=== PATIENT | female | born 1995 | race Two or more races ===

== ENCOUNTER → 2022-10-19 11:09 | Outpatient (BNVA) | payer OTHER, SELFPAY | PROVIDERS: PCP Family Medicine; Visit Provider Nurse Practitioner Family | DX: G43.909 Migraine, unspecified, not intractable, without status migrainosus (principal); M54.2 Cervicalgia | CPT/HCPCS: 99202 ==

== ENCOUNTER → 2023-01-02 15:05 | Outpatient (BNVA) | payer OTHER, SELFPAY | PROVIDERS: PCP Family Medicine; Visit Provider Nurse Practitioner Family | DX: M54.2 Cervicalgia (principal); G43.909 Migraine, unspecified, not intractable, without status migrainosus; G47.00 Insomnia, unspecified; Z79.899 Other long term (current) drug therapy | CPT/HCPCS: 99212 ==

== ENCOUNTER → 2023-04-04 15:34 | Outpatient (BNVA) | payer OTHER, SELFPAY | PROVIDERS: PCP Family Medicine; Visit Provider Nurse Practitioner Family | DX: G43.909 Migraine, unspecified, not intractable, without status migrainosus (principal); M54.2 Cervicalgia | CPT/HCPCS: 99212 ==

== ENCOUNTER → 2023-04-18 13:06 | Outpatient (BNVA) | payer OTHER, SELFPAY | PROVIDERS: PCP Family Medicine; Visit Provider Nurse Practitioner Family | DX: G43.909 Migraine, unspecified, not intractable, without status migrainosus (principal) | CPT/HCPCS: 99211 ==

== ENCOUNTER 2023-07-19 13:05 | Outpatient (AMB) | payer OTHER, SELFPAY ==
--- NOTE | 2023-07-19 13:09 | MHC.OFFVIS ---
Intake Vital Signs 07/19/23 13:15 Height 4 ft 11 in Weight 114 lb 6 oz BMI 23.1 BMI Reason not done Patient refused/unable BP 98/62 Blood Pressure Location Rt brachial Position Sitting Respiration 16 Pulse 96 Pulse Source Pulse Oximeter Pulse Oximetry (%) 98 Oxygen Delivery Method Room Air Intake Visit Reasons: 3 mo follow up - Migraines-Confirmed Intake Note: Pt presents to office for a 3 month follow up of migraines. Pt states her migraines have been stable while on her meds. She does note that she noticed the effects of her medication wore off a couple of days prior to her next dose. Overall, she feels they are well managed. Allergies adhesive tape Allergy (Unknown, Verified 07/19/23 13:14) Blister Medication List - Last Reconciled 07/19/23 by CELINE Carreno albuterol sulfate 90 mcg/actuation (Ventolin HFA) 2 puffs inhalation Q4-6H PRN utyfrwt-zttmyrsskvlmr-iepkyvnv 250-250-65 mg (Excedrin Migraine) 1 tab PO Q4-6H PRN baclofen 5 - 10 mg (1 - 2 x 5 mg) PO BEDTIME 30 days ergocalciferol (vitamin D2) units PO .weekly fluticasone propionate 110 mcg/actuation (Flovent HFA) 2 puffs inhalation BID galcanezumab-gnlm (Emgality Pen) 120 mg subcut ONCE 30 days rizatriptan 5 - 10 mg (0.5 - 1 x 10 mg) PO Q2H PRN 21 days HPI HPI Comments History of Present Illness Details 28-yr-old female presents for f/u visit. Pt denies any significant interval medical changes. Pt reports that she has been doing well on Emgality, may feel a slight uptick in headaches in the few days before the next injection cycles. In the last month, she has had 5-6 headache days- more mild-mod. Her neck can still be tight. Using the baclofen as needed. She did not tolerate the Rizatriptan- it can make her headache a bit worse, but not as bad as the sumatriptan- but is reluctant to retry. PFSH Surgical History History of sleeve gastrectomy [place] teeth extracted Family History Father Hypotension Mother Hypertension Social History Alcohol intake: current Alcohol intake frequency: holidays/special occasions only Patient Tobacco Use Status: Current someday Tobacco user Substance Use Type: Marijuana Review of Systems Const All systems reviewed & are unremarkable except as noted in HPI and below Physical Exam Vital Signs: Last Vital Signs Pulse 96 07/19/23 13:15 Resp 16 07/19/23 13:15 BP 98/62 07/19/23 13:15 Pulse Ox 98 07/19/23 13:15 Oxygen Delivery Method Room Air 07/19/23 13:15 BMI result Body Mass Index 23.1 Const General: cooperative and no acute distress Orientation/consciousness: patient oriented x3 HEENT Head: Yes normocephalic Resp Effort & Inspection: normal respiratory effort and able to speak in complete sentences Neuro General: patient oriented x3, gait normal and CN's II-XI intact bilaterally Cognition (Neuro): normal cognition Motor exam (neuro): 5/5 motor strength present throughout Psych Appearance: grossly normal Mental Status: mental status grossly normal Speech and movement: Normal speech and movement present Affect: normal affect Attitude: cooperative Thought process: Normal thought process present Thought content: Normal thought content present Insight: Good insight present (Psych) Judgement: Good judgement present (Psych) Assessment & Plan Assessment & Plan (1) Migraine: Comment: ? if right toe tingling is migraine sensory aura Code(s): G43.909 - Migraine, unspecified, not intractable, without status migrainosus (2) Cervicalgia: Code(s): M54.2 - Cervicalgia Plan For acute headache treatment: Trial Ubrogepant (Ubrelvy) 100mg tab, 1/2 - 1 tab (50-100mg) at onset of headache, may repeat in 2 hours. Max of 2 tabs (200mg) per 24 hours. May adjunct with OTC Tylenol 650mg q 4 hours, Ibuprofen 600mg q 6 hours, or Naproxen 440mg q 12 hrs prn. Stop Rizatriptan 10mg tab. Reviewed potential adverse effects of triptans, including but not limited to nausea, fatigue, chest tightness/tingling (usually passes within a few minutes), medication overuse headaches. Previous acute migraine medication trials: Sumatriptan 50mg prn- ineffective. Sumatriptan 100mg- not tolerated. Rizatripatn- not tolerated. Acute migraine medication contraindications: None at this time. ? For headache prevention medication: Continue Baclofen 5-10mg qhs. Continue Emgality 240mg sc x's 1, 120mg q month Previous migraine prevention medication trials: Amitriptyline- used for mood- did not help headaches. Topiramate- not tolerated. B2 and Mag- ineffective. Migraine prevention medication contraindications: BBs d/t dx of asthma. Continue exercise. ? F/u in 4-5 months or sooner prn new/worsening s/s. Medications: New ubrogepant (Ubrelvy) take at onset of migraine, may repeat in 2hrs (may take w/ Ibuprofen) 50 - 100 mg (0.5 - 1 x 100 mg) PO ONCE 30 days PRN 16 tabs 3RF migraine headache Refilled galcanezumab-gnlm (Emgality Pen) 120 mg subcut ONCE 30 days 1 mL 6RF Discontinued rizatriptan max 2 tabs per day or 4 tabs per week Discontinued Reason: Doctor's Order 5 - 10 mg (0.5 - 1 x 10 mg) PO Q2H 21 days PRN 12 tabs 3RF migraine headache Coding Level of Care Code Est Pt Level 4 (30678) Diagnoses Migraine G43.909 Cervicalgia M54.2
[2023-07-19 13:15] VITALS: BP 98/62; PULSE 96; RESP 16; O2SAT 98; BMI 23.1
== END 2023-07-19 13:51 | disposition home or self-care (01) ==
PROVIDERS: PCP Family Medicine; Visit Provider Nurse Practitioner Family
DX: G43.909 Migraine, unspecified, not intractable, without status migrainosus (principal); M54.2 Cervicalgia
CPT/HCPCS: 99214

== ENCOUNTER → 2023-07-19 13:05 | Outpatient (BNVA) | payer OTHER, SELFPAY | PROVIDERS: PCP Family Medicine; Visit Provider Nurse Practitioner Family | DX: G43.909 Migraine, unspecified, not intractable, without status migrainosus (principal); M54.2 Cervicalgia | CPT/HCPCS: 99212 ==

== ENCOUNTER → 2023-11-07 14:10 | Outpatient (BNVA) | payer OTHER, SELFPAY | PROVIDERS: PCP Family Medicine; Visit Provider Nurse Practitioner Family ==

== ENCOUNTER 2023-11-29 11:51 | Outpatient (REF) | payer OTHER, SELFPAY ==
--- NOTE | ~2023-11-29 | MR_ITS ---
EXAMINATION: MR BRAIN WITH AND WITHOUT CONTRAST CLINICAL INFORMATION: Migraines, right sided tenderness to touch, evaluate for trigeminal neuralgia COMPARISON: None available TECHNIQUE: MRI of the brain was obtained using routine sequences before and following administration of intravenous contrast. A total of 5 mL of Gadavist was administered intravenously. FINDINGS: There is no reduced diffusion to suggest acute infarct. No mass effect, extra-axial collection, midline shift, or other herniation. No abnormal intracranial enhancement. A small vessel courses superior to the right trigeminal nerve cisternal segment without sara compression. No abnormal enhancement is seen along the cisternal segment of the trigeminal nerves or within Meckel's caves. The visualized extracranial course of the trigeminal nerves appears within normal limits. The ventricles and sulci are normal in size and configuration. Intracranial flow voids are preserved. The paranasal sinuses are essentially clear. Minimal mastoid opacification. No focal expansile/destructive osseous lesion. MR/MR head/brain wo/w con IMPRESSION: A small vessel courses superior to the right trigeminal nerve cisternal segment without sara compression. The visualized aspects of the bilateral trigeminal nerves appear within normal limits.
[2023-11-29] MEDS: gadobutroL 7.5 ML VIAL IVPUSH (12:46)
== END 2023-11-29 11:52 | disposition home or self-care (01) ==
LOC: HO.MRI 11:51
PROVIDERS: PCP Family Medicine; Visit Provider Nurse Practitioner Family
DX: G50.0 Trigeminal neuralgia (principal); G40.109 Localization-related (focal) (partial) symptomatic epilepsy and epileptic syndromes with simple partial seizures, not intractable, without status epilepticus; H02.409 Unspecified ptosis of unspecified eyelid
CPT/HCPCS: 70553; A9585

== ENCOUNTER 2024-03-03 15:25 | Outpatient (AMB) | payer OTHER, SELFPAY ==
--- NOTE | 2024-03-03 15:26 | MHC.OFFVIS ---
Intake Visit Reasons: 3 mo f/u-CONF Intake Note: Patient presents for 3 months f/u. Allergies adhesive tape Allergy (Unknown, Verified 03/03/24 15:27) Blister Medication List - Last Reconciled 03/03/24 by CELINE Carreno albuterol sulfate 90 mcg/actuation (Ventolin HFA) 2 puffs inhalation Q4-6H PRN bulefqo-dcazoxzdvvvgq-ssypmjuy 250-250-65 mg (Excedrin Migraine) 1 tab PO Q4-6H PRN baclofen 5 - 10 mg (1 - 2 x 5 mg) PO BEDTIME 30 days budesonide 180 mcg/actuation (Pulmicort Flexhaler) 1 inh inhalation BID carbamazepine ER (Tegretol XR) 100 mg PO BID 90 days ergocalciferol (vitamin D2) units PO .weekly galcanezumab-gnlm (Emgality Pen) 120 mg subcut ONCE 30 days sucralfate (Carafate) 10 mL PO QIDACHS ubrogepant (Ubrelvy) 50 - 100 mg (0.5 - 1 x 100 mg) PO ONCE PRN 30 days HPI Comments Details: 29-yr-old female presents for f/u televideo visit via [employer] Pt reports she had a recent ER eval for transient intussusception- since PCP has started her on carafate. Her asthma tx was also adjusted. Brain MRI showed a small vessel courses superior to the right trigeminal nerve cisternal segment without sara compression. Upon review of the [facility] MRI w/ pt= she endorsed ongoing right anterior ear pain burning/melting pain in TN V1 distribution- triggered by next movement. Thus, pt was advised to start Tegretol ER 100mg bid to help, which pt feels has been helpful. She only has had 1 episode of the right sided burning/melting pain- triggered by turning her head- lasted 10-15 seconds- since starting Tegretol. She notes that when she unintentionally skipped a few days, she had mood irritability. But when she resumes it, her mood improves. She did recently have a slight uptick in the right sided migraine- she states this may be related to a delay in receiving her migraine. Typically has 4-6 more mild migraine days per month. Ubrelvy is still helpful- but has not been able to refill. Baseline headache characteristics: Migraine: Mild-Severe, Starts as stabbing and throbbing in the right posterior neck and spreads into right occipital, parietal, temporal region, and then moves across the whole head as a dull ache. The headache almost always starts and is more intense on the right, occasionally may have a headache that moves into left holiness. A/w brief photophobia, nausea, vomiting, grogginess, activity tolerance, numbness/tingling in right toes (she thinks maybe its her positioning). Cervicgenic headcahe: Rght neck pain which cause a burning/melting sensation into- right occipital, parietal, temporal region- lasts about 30-60 seconds- this is triggered by cervical movement (not specific movement). Trigeminal neuralgia headache: a stabbing throbbing pain in right holiness a/w right eye tearing, but unaware of redness/weakness- now triggered by truning her head. 11/29/23, MR/MR head/brain wo/w con IMPRESSION: A small vessel courses superior to the right trigeminal nerve cisternal segment without sara compression. The visualized aspects of the bilateral trigeminal nerves appear within normal limits. [facility] Medical History (Updated 03/03/24 @ 16:41 by CELINE Carreno) Intussusception intestine Surgical History History of sleeve gastrectomy [place] teeth extracted Family History Father Hypotension Mother Hypertension Social History Alcohol intake: current Alcohol intake frequency: holidays/special occasions only Patient Tobacco Use Status: Current someday Tobacco user Substance Use Type: Marijuana Physical Exam Const General: cooperative and no acute distress Orientation/consciousness: patient oriented x3 Resp Effort & Inspection: normal respiratory effort and able to speak in complete sentences Neuro General: patient oriented x3 Cognition (Neuro): normal cognition Psych Appearance: grossly normal Mental Status: mental status grossly normal Speech and movement: Normal speech and movement present Affect: normal affect Attitude: cooperative Telehealth Telehealth Telehealth Platform: [facility] Location of provider rendering services: practice address Location of patient: address on file Patient Identification confirmed using: Name, : Yes Telehealth method: video Patient verbally consented to treatment: Yes Patient verbally consented to billing insurance company: Yes Patient informed of any privacy concerns related to visit: Yes Minutes spent on Phone/Video with Pt.: 22 Assessment & Plan Assessment & Plan (1) Trigeminal neuralgia of right side of face: Code(s): G50.0 - Trigeminal neuralgia Category: Medical (2) Migraine: Comment: ? if right toe tingling is migraine sensory aura Code(s): G43.909 - Migraine, unspecified, not intractable, without status migrainosus Category: Medical (3) Cervicalgia: Code(s): M54.2 - Cervicalgia Category: Medical (4) Cervicogenic headache: Code(s): G44.86 - Cervicogenic headache Category: Medical Plan For new right-sided headache triggered by cervical rotation c/w trigeminal neuralgia: Reviewed brain MRI w/wo: a small vessel courses superior to the right trigeminal nerve cisternal segment without sara compression. Continue Tegretol Er 100mg bid Recheck CBC and CMP. Pt advsied to undergo: brain MRA wo- to assess for secondary vascular etiologies not appreciated on MRI brain. c-spine MRI w/wo- to assess for cervical central inflammatory, radicular process Future considerations: Trial of Tegretol. PT referral. Brain MRA. For acute headache treatment: Continue Ubrogepant (Ubrelvy) 100mg tab, 1/2 - 1 tab (50-100mg) at onset of headache, may repeat in 2 hours. Max of 2 tabs (200mg) per 24 hours. May adjunct with OTC Tylenol 650mg q 4 hours, Ibuprofen 600mg q 6 hours, or Naproxen 440mg q 12 hrs prn. Previous acute migraine medication trials: Sumatriptan 50mg prn- ineffective. Sumatriptan 100mg- not tolerated. Rizatripatn- not tolerated. Acute migraine medication contraindications: None at this time. ? For headache prevention medication: Continue Baclofen 5-10mg qhs. Continue Emgality 120mg q month Previous migraine prevention medication trials: Amitriptyline- used for mood- did not help headaches. Topiramate- not tolerated. B2 and Mag- ineffective. Migraine prevention medication contraindications: BBs d/t dx of asthma. Continue exercise. ? F/u in 3-4 months or sooner prn new/worsening s/s. Orders: Orders Complete Blood Count Auto Diff Today G50.0 - Trigeminal neuralgia Comprehensive Met. Panel Today G50.0 - Trigeminal neuralgia MR cervical spine wo/w con Today G40.109 - Localization-related (focal) (partial) symptomatic epilepsy and epileptic syndromes with simple partial seizures, not intractable, without status epilepticus, G50.0 - Trigeminal neuralgia, H02.409 - Unspecified ptosis of unspecified eyelid MR angio head wo con Today G40.109 - Localization-related (focal) (partial) symptomatic epilepsy and epileptic syndromes with simple partial seizures, not intractable, without status epilepticus, G50.0 - Trigeminal neuralgia, H02.409 - Unspecified ptosis of unspecified eyelid Medications: Refilled galcanezumab-gnlm (Emgality Pen) 120 mg subcut ONCE 30 days 1 mL 6RF carbamazepine ER (Tegretol XR) 100 mg PO BID 90 days 180 tabs 3RF G50.0 - Trigeminal neuralgia Coding Level of Care Code Tele Est Pt Level 4 (98245) Diagnoses Trigeminal neuralgia of right side of face G50.0 Migraine G43.909 Cervicalgia M54.2 Cervicogenic headache G44.86
== END 2024-03-03 16:00 ==
LOC: HO.HSMS 15:25
PROVIDERS: PCP Family Medicine; Visit Provider Nurse Practitioner Family
DX: G50.0 Trigeminal neuralgia (principal); G43.909 Migraine, unspecified, not intractable, without status migrainosus; M54.2 Cervicalgia; G44.86 Cervicogenic headache
CPT/HCPCS: 99214

== ENCOUNTER → 2024-03-03 15:25 | Outpatient (BNVA) | payer OTHER, SELFPAY | PROVIDERS: PCP Family Medicine; Visit Provider Nurse Practitioner Family ==

== ENCOUNTER 2024-07-08 07:19 | Outpatient (AMB) | payer OTHER, SELFPAY ==
[2024-07-08 07:34] VITALS: BP 100/60; PULSE 83; RESP 16; O2SAT 93; BMI 24.2
--- NOTE | 2024-07-08 07:34 | MHC.OFFVIS ---
Vital Signs 07/08/24 07:34 Height 4 ft 11 in Weight 120 lb BMI 24.2 BP 100/60 Blood Pressure Location Rt brachial Position Sitting Respiration 16 Pulse 83 Pulse Source Pulse Oximeter Pulse Oximetry (%) 93 Oxygen Delivery Method Room Air Intake Visit Reasons: 3 month f/u Intake Note: Pt presents for a 4 month follow up for migraines. Pt reports improvement with migraines. She does have some concerns with hair loss since on the Emgality. Layer Out Plate Glass Required: No Allergies adhesive tape Allergy (Unknown, Verified 07/08/24 07:34) Blister Medication List - Last Reconciled 07/08/24 by CELINE Carreno albuterol sulfate 90 mcg/actuation (Ventolin HFA) 2 puffs inhalation Q4-6H PRN bsvllgy-ljzkmkkpqmaii-vwdrlhzo 250-250-65 mg (Excedrin Migraine) 1 tab PO Q4-6H PRN baclofen 5 - 10 mg (1 - 2 x 5 mg) PO BEDTIME 30 days budesonide 180 mcg/actuation (Pulmicort Flexhaler) 1 inh inhalation BID carbamazepine ER (Tegretol XR) 100 mg PO BID 90 days ergocalciferol (vitamin D2) units PO .weekly galcanezumab-gnlm (Emgality Pen) 120 mg subcut ONCE 30 days sucralfate (Carafate) 10 mL PO QIDACHS ubrogepant (Ubrelvy) 50 - 100 mg (0.5 - 1 x 100 mg) PO ONCE PRN 30 days HPI Comments Details: 29-yr-old female presents for f/u visit. Pt denies any significant interval medical changes. She has not had f/u imaging done yet. Pt has been noticing more neck and low back pain, muscle tightness, joint crepitus. May have neck pain moving into her right neck into right upper trap. She has not been exercising as much as had not been feeling well. She has not been having sudden severe right sided head numbing pain attacks, now finds that if she notices the onset and then turns her head she can offset it. She cannot recall the last time she has had a severe disabling migraine where she has to lie down. She may have more mild-moderate migraine approx 5 times a month, which responds well to Ubrelvy. She also notes that she has been noticing hair loss. So stopped all meds except Emgality and prn Ubrelvy. Baseline headache characteristics: Migraine: Mild-Severe, Starts as stabbing and throbbing in the right posterior neck and spreads into right occipital, parietal, temporal region, and then moves across the whole head as a dull ache. The headache almost always starts and is more intense on the right, occasionally may have a headache that moves into left scientology. A/w brief photophobia, nausea, vomiting, grogginess, activity tolerance, numbness/tingling in right toes (she thinks maybe its her positioning). Cervicgenic headcahe: Rght neck pain which cause a burning/melting sensation into- right occipital, parietal, temporal region- lasts about 30-60 seconds- this is triggered by cervical movement (not specific movement). Trigeminal neuralgia headache: a stabbing throbbing pain in right scientology a/w right eye tearing, but unaware of redness/weakness- now triggered by truning her head. 11/29/23, MR/MR head/brain wo/w con IMPRESSION: A small vessel courses superior to the right trigeminal nerve cisternal segment without sara compression. The visualized aspects of the bilateral trigeminal nerves appear within normal limits. [facility] Medical History Intussusception intestine Surgical History History of sleeve gastrectomy [place] teeth extracted Family History Father Hypotension Mother Hypertension Social History Alcohol intake: current Alcohol intake frequency: holidays/special occasions only Patient Tobacco Use Status: Current someday Tobacco user Substance Use Type: Marijuana Physical Exam Vital Signs: Last Vital Signs Pulse 83 07/08/24 07:34 Resp 16 07/08/24 07:34 BP 100/60 07/08/24 07:34 Pulse Ox 93 07/08/24 07:34 Oxygen Delivery Method Room Air 07/08/24 07:34 BMI result Body Mass Index 24.2 Const General: cooperative and no acute distress Orientation/consciousness: patient oriented x3 Resp Effort & Inspection: normal respiratory effort and able to speak in complete sentences Neuro Other: Bilateral posterior R > L tightness and tenderness. General: patient oriented x3 and deep tendon reflexes 2+ bilaterally Cranial nerves: Yes CN's II-XII intact bilaterally Cognition (Neuro): normal cognition Motor exam (neuro): 5/5 motor strength present throughout Psych Appearance: grossly normal Mental Status: mental status grossly normal Speech and movement: Normal speech and movement present Affect: normal affect Attitude: cooperative Assessment & Plan Assessment & Plan (1) Cervicalgia: Code(s): M54.2 - Cervicalgia Category: Medical (2) Migraine: Comment: ? if right toe tingling is migraine sensory aura Code(s): G43.909 - Migraine, unspecified, not intractable, without status migrainosus Category: Medical (3) Cervicogenic headache: Code(s): G44.86 - Cervicogenic headache Category: Medical (4) Hair loss: Code(s): L65.9 - Nonscarring hair loss, unspecified Category: Medical (5) Trigeminal neuralgia of right side of face: Code(s): G50.0 - Trigeminal neuralgia Category: Medical Plan For newer right-sided headache triggered by cervical rotation c/w trigeminal neuralgia: Reviewed brain MRI w/wo: a small vessel courses superior to the right trigeminal nerve cisternal segment without sara compression. May hold Tegretol Er 100mg bid- pt would like to minimize med use. PT eval & tx Pt again advised to undergo: brain MRA wo- to assess for secondary vascular etiologies not appreciated on MRI brain. c-spine MRI w/wo- to assess for cervical central inflammatory, radicular process ? For acute headache treatment: Continue Ubrogepant (Ubrelvy) 100mg tab, 1/2 - 1 tab (50-100mg) at onset of headache, may repeat in 2 hours. Max of 2 tabs (200mg) per 24 hours. May adjunct with OTC Tylenol 650mg q 4 hours, Ibuprofen 600mg q 6 hours, or Naproxen 440mg q 12 hrs prn. Previous acute migraine medication trials: Sumatriptan 50mg prn- ineffective. Sumatriptan 100mg- not tolerated. Rizatripatn- not tolerated. Acute migraine medication contraindications: None at this time. ? For headache prevention medication: Continue Baclofen 5-10mg qhs prn. Continue Emgality 120mg q month. Previous migraine prevention medication trials: Amitriptyline- used for mood- did not help headaches. Topiramate- not tolerated. B2 and Mag- ineffective. Migraine prevention medication contraindications: BBs d/t dx of asthma. Continue exercise. Fir hair loss, will refer to dermatology. Discussed there are ancedotal reports of hair loss w/ CGRP antagonsists, however hair loss can be multi-factorial and triggered by stress/changes many months prior to onset of hair loss. She may trial OTC Vitamin B-5. ? F/u in 3-4 months or sooner prn new/worsening s/s. Orders: Orders PT Evaluation and Treatment Today G43.909 - Migraine, unspecified, not intractable, without status migrainosus, G44.86 - Cervicogenic headache, M54.2 - Cervicalgia Referrals Dermatology Referral L65.9 - Nonscarring hair loss, unspecified Medications: Refilled baclofen 5 - 10 mg (1 - 2 x 5 mg) PO BEDTIME 30 days 60 tabs 3RF On Hold carbamazepine ER (Tegretol XR) Hold Comment: Doctor's Order 100 mg PO BID 90 days 180 tabs 3RF G50.0 - Trigeminal neuralgia Coding Level of Care Code Est Pt Level 4 (26499) Diagnoses Cervicalgia M54.2 Migraine G43.909 Cervicogenic headache G44.86 Hair loss L65.9 Trigeminal neuralgia of right side of face G50.0
== END 2024-07-08 08:27 | disposition home or self-care (01) ==
PROVIDERS: PCP Family Medicine; Visit Provider Nurse Practitioner Family
DX: M54.2 Cervicalgia (principal); G43.909 Migraine, unspecified, not intractable, without status migrainosus; G44.86 Cervicogenic headache; L65.9 Nonscarring hair loss, unspecified; G50.0 Trigeminal neuralgia
CPT/HCPCS: 99214

== ENCOUNTER → 2024-07-08 07:19 | Outpatient (BNVA) | payer OTHER, SELFPAY | PROVIDERS: PCP Family Medicine; Visit Provider Nurse Practitioner Family | DX: G43.909 Migraine, unspecified, not intractable, without status migrainosus (principal); G44.86 Cervicogenic headache; M54.2 Cervicalgia; L65.9 Nonscarring hair loss, unspecified; G50.0 Trigeminal neuralgia | CPT/HCPCS: 99212 ==

== ENCOUNTER → 2024-10-22 10:14 | Outpatient (BNV) | payer OTHER, SELFPAY | PROVIDERS: Visit Provider Radiology Diagnostic Radiology | DX: G50.0 Trigeminal neuralgia (principal); G40.109 Localization-related (focal) (partial) symptomatic epilepsy and epileptic syndromes with simple partial seizures, not intractable, without status epilepticus | CPT/HCPCS: 70544 ==

== ENCOUNTER 2024-10-22 10:16 | Outpatient (REF) | payer OTHER, SELFPAY ==
--- NOTE | ~2024-10-22 | MR_ITS ---
EXAMINATION: MR ANGIOGRAPHY BRAIN WITHOUT CONTRAST CLINICAL INFORMATION: Trigeminal neuralgia, right side. Migraines. COMPARISON: Correlated to MRI brain dated November 29, 2023. TECHNIQUE: 3-D [id number]-gt-[id number]. Maximum intensity projections [place] of [place]. No IV contrast. FINDINGS: Submitted for interpretation on October 26, 2024. Anterior cerebral circulation: ICAs: No flow signal gap or contour irregularity. ACAs: No flow signal gap or contour irregularity. No abrupt cut off. MCA's: No flow signal gap or contour irregularity. No abrupt cut off. Bifurcation trifurcation regions demonstrated no flow signal abnormality. Anterior communicant artery: No flow signal. Ophthalmic arteries: Flow signal is present. Posterior cerebral communicating arteries: Flow signal is present with small caliber more conspicuous on the left side. Posterior cerebral circulation: V3/V4 segments: Flow signal is present without focal narrowing or intraluminal flow signal abnormality. Left vertebral artery slightly dominant. Posterior inferior cerebellar arteries: Flow signal is present. Basilar artery: No flow signal irregularity, abrupt cut off or intraluminal signal abnormality. Anterior inferior cerebellar arteries: Flow signal is present. Superior cerebellar arteries: Flow signal is present. rotary engine assembler: No flow signal gap or abrupt cut off. MR/MR angio head wo con IMPRESSION: No main cerebral artery occlusion or embolus or gross aneurysm. Electronically signed by: Kevyn Guardado MD 10/26/2024 10:35 AM [facility]
== END 2024-10-22 10:17 | disposition home or self-care (01) ==
LOC: HO.MRI 10:16
PROVIDERS: Visit Provider Nurse Practitioner Family
DX: G50.0 Trigeminal neuralgia (principal); G40.109 Localization-related (focal) (partial) symptomatic epilepsy and epileptic syndromes with simple partial seizures, not intractable, without status epilepticus; H02.409 Unspecified ptosis of unspecified eyelid
CPT/HCPCS: 70544

== ENCOUNTER 2025-01-13 08:26 | Outpatient (REF) | payer OTHER, SELFPAY ==
--- OUTSIDE RECORDS SUMMARY | 2025-01-13 14:07 | XMS_ITS | Clinical Summary ---
Author Organization [facility] Address [address] [place] [address] Care Team Providers Care Gasoline Pump Mechanic Name Role Phone Shiloh Hernandes MD Primary [...] Adults 18 yrs or above (or HM Modifier)([facility]) 2013 Hepatitis C Virus Infection in Adolescents and Adults: Screening (or Modifier) ([facility]) 2013 SDMD Screening Reminder: Savi steiner for all adults ([facility]) 2013 Tobacco Smoking Cessation: i n Adults excluding Women: Behavioral and Pharmacotherapy Interventions ([facility]) 2013 DTaP/Tdap/Td Vaccines ([facility]) (1 - Tdap) 2014 Lipid Screening: Once for Wo men aged 20 to 45 yrs ([facility]) 2015 Cervical Cancer Screenin 1-65 yrs of age (or Modifier) 01/09/2016 Cervical Cancer Screening: P ap every 3 yrs pts age 21-65 01/09/2016 Cervical Cancer: Pap Screeni ng with Modifier timing ([facility]) 01/09/2016 Cervical Cancer: hrHPV alone or with cotesting Pap for Pts 30-65yrs screening every 5yrs ([facility]) 01/09/2016 Flu Vaccination: Yearly for ages 18mos through 64 years (or Modifier)([facility]) 05/14/2024 COVID-19 Vaccine Screening: Initial Series and Booster Status ([facility]) ( - 2023- season) 2024 Zoster/Shingles Vaccine Seri es Screening: Adults aged 18+ yrs (or HM Modifiers)([facility]) (1 of 2) 2045 Pneumococcal Vaccination Scr eening: Pts 0-19 & 19-49 yrs of age ([facility]) Aged Out No longer eligible based on patient's age to complete this topic Medical Devices Not on file Insurance [facility] Care Teams Gasoline Pump Mechanic Relationship Specialty Start Date End Date Shiloh Hernandes MD [address] [place] [address] [place] [phone] PCP - General Family Medicine 09/18/23
--- OUTSIDE RECORDS SUMMARY | 2025-01-13 14:07 | XMS_ITS | Clinical Summary ---
Author Organization [facility] Address [address] [place] [address] [place] [phone] Phone Care Team Providers Care Distribution Operations Supervisor Name Role Phone Pcp, Not Required Primary [...] Description 03/10/2025 10:40 AM EDT Appointment [facility] Internal Medicine [address] [place] [address] Estevan Euceda PA-C [address] [place] [address] [email or web address] Maintenance Due Date Last Done Comments [...] Medical Devices Not on file Care Teams Distribution Operations Supervisor Relationship Specialty Start Date End Date Pcp, Not Required [address] [place] [phone] PCP - General 09/15/24 Self-Referred, Patient 09/15/24 Additional Source Comments The information contained in this document represents components of the legal health record. It is not the complete legal health record.[facility]
--- OUTSIDE RECORDS SUMMARY | 2025-01-13 14:07 | XMS_ITS | Clinical Summary ---
Author Organization [facility] Address [address] [place] [address] Care Team Providers Care Thread Checker Name Role Phone Unavailable Primary Care Provider [...] COVID-19: None ? ? 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 ? COVID-19 Tested? - No ? [...]
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
[2025-01-13 18:08] LABS: MANUAL DIFF FLAG NO
[2025-01-13 18:38] LABS: Rheumatoid Factor < 13.0 IU/mL (<15.0)
[2025-01-13 18:50] LABS: Alanine Aminotransferase 10 U/L (0-31); Alkaline Phosphatase 59 U/L (39-117); Anion Gap 9 (12-20); Aspartate Amino Transferase 21 U/L (5-31); Bilirubin Total 0.6 mg/dL (0.0-1.0); Blood Urea Nitrogen 10 mg/dL (9-16); Calcium 9.1 mg/dL (8.4-10.2); Carbon Dioxide 24 mmol/L (22-29); Chloride 111 mmol/L (96-108); Estimated Glomerular Filt Rate > 60; Glucose Random 76 mg/dL (60-115); Iron 146 mcg/dL (30-160); Percent Iron Saturation 37 % (15-50); Potassium 4.3 mmol/L (3.3-5.1); Sodium 140 mmol/L (135-145); Total Iron Binding Capacity 394 mcg/dL (228-428); Total Protein 7.3 g/dL (6.5-8.0); Unsaturated Iron Binding 248 ug/dL
[2025-01-13 18:51] LABS: Basophils Percent Auto 0.5 % (0-2); Eosinophils Absolute Auto 0.2 X10*3/uL (0.0-0.4); Eosinophils Percent Auto 2.4 % (0-4); Ferritin 14 ng/mL (10-122); Hematocrit 40.6 % (37.0-47.0); Hemoglobin 13.4 g/dl (12.0-16.0); Imm Gran Abs Auto 0.02 X10*3/uL (0.00-0.03); Imm Gran Pct Auto 0.3 % (0.0-0.4); Mean Platelet Volume 11.1 fL (9.4-12.3); Monocytes Absolute Auto 0.3 X10*3/uL (0.1-1.2); Monocytes Percent Auto 3.4 % (2-11); Neutrophils Absolute Auto 5.1 x10*3/uL (2.0-8.3); Neutrophils Percent Auto 67.4 % (45-73); Platelet Count 268 X10*3/uL (160-400); Red Blood Count 4.46 X10*6/uL (4.20-5.50); Red Cell Distribution Width 13.2 % (11.0-16.0); White Blood Count 7.6 X10*3/uL (4.8-10.8)
[2025-01-13 19:05] LABS: Folate 4.5 ng/mL (> or = 4.0); Vitamin B12 334 pg/mL (200-900)
[2025-01-13 19:32] LABS: Erythrocyte Sedimentation Rate 12 MM/HR (0-20)
[2025-01-14 08:44] LABS: CRP High Sensitivity 0.2 mg/L
[2025-01-14 21:43] LABS: Lyme Abs Screen <0.90 index
[2025-01-15 12:29] LABS: Anti Nuclear Antibody Screen NEGATIVE (NEGATIVE)
[2025-01-16 04:19] LABS: Methylmalonic Acid 85 nmol/L (55-335)
[2025-01-18 10:09] LABS: Vitamin B6 23.7 ng/mL (2.1-21.7)
[2025-01-19 15:09] LABS: Vitamin D 25-OH, D2 <4 ng/mL; Vitamin D 25-OH, D3 4 ng/mL; Vitamin D 25-OH, Total 4 ng/mL (30-100)
[2025-01-21 15:39] LABS: Vitamin B1 8 nmol/L (8-30)
== END 2025-01-13 08:27 | disposition home or self-care (01) ==
LOC: HO.HKASLDS 08:26
PROVIDERS: PCP Family Medicine; Visit Provider Nurse Practitioner Family
DX: G43.909 Migraine, unspecified, not intractable, without status migrainosus (principal); G44.86 Cervicogenic headache; G50.0 Trigeminal neuralgia; R25.1 Tremor, unspecified; M62.838 Other muscle spasm; M54.2 Cervicalgia; L65.9 Nonscarring hair loss, unspecified; Z90.3 Acquired absence of stomach [part of]; D64.9 Anemia, unspecified; E63.9 Nutritional deficiency, unspecified; F41.9 Anxiety disorder, unspecified
CPT/HCPCS: 36415; 80053; 82306; 82607; 82728; 82746; 83540; 83735; 83921; 84207; 84425; 84443; 85025; 85652; 86038; 86141; 86431; 86617; 86618; 99212

== ENCOUNTER 2025-01-13 08:26 | Outpatient (AMB) | payer OTHER, SELFPAY ==
--- NOTE | 2025-01-13 08:27 | MHC.OFFVIS ---
Intake Visit Reasons: 6mo F/U Intake Note: Patient presents follow up migraine. [facility] for derm to check if seen Allergies adhesive tape Allergy (Unknown, Verified 01/13/25 08:27) Blister HPI Comments Details: History of Present Illness The patient is a 30-year-old female presenting for follow-up of migraine, cervicalgia, and to follow-up up interval head imaging. Today she would like to discuss tremor symptoms. The tremors have been occurring almost daily and appear to be aggravated by action. The potential familial component was discussed, exploring whether a family history of tremors or psychiatric medication usage could contribute. Essential tremor was considered due to its action-related manifestation. The patient also reports migraine, for which she has previously undergone a brain MRA in October 2024, which showed normal results. She reports control of migraine symptoms on her migraine prevention regimen. Patient also reports cervicalgia,, with the mention of potential neck tightness contributing to symptoms. Trigeminal neuralgia type pain, primarily affecting the right side, still occurs with turning her head. Review of Systems - Neurological: Reports tremors, primarily action-related. - Fluid Intake: Discusses potential dehydration.. - Gastrointestinal: No reports given. - Psychiatric: Denies past use of psychiatric medications like Haldol or experiences of psychiatric hospitalization. Results - MR/MR angio head wo con: No main cerebral artery occlusion or embolus or gross aneurysm. 07/08/24 HPI: She has not had f/u imaging done yet. Pt has been noticing more neck and low back pain, muscle tightness, joint crepitus. May have neck pain moving into her right neck into right upper trap. She has not been exercising as much as had not been feeling well. She has not been having sudden severe right sided head numbing pain attacks, now finds that if she notices the onset and then turns her head she can offset it. She cannot recall the last time she has had a severe disabling migraine where she has to lie down. She may have more mild-moderate migraine approx 5 times a month, which responds well to Ubrelvy. She also notes that she has been noticing hair loss. So stopped all meds except Emgality and prn Ubrelvy. Baseline headache characteristics: Migraine: Mild-Severe, Starts as stabbing and throbbing in the right posterior neck and spreads into right occipital, parietal, temporal region, and then moves across the whole head as a dull ache. The headache almost always starts and is more intense on the right, occasionally may have a headache that moves into left restorationism. A/w brief photophobia, nausea, vomiting, grogginess, activity tolerance, numbness/tingling in right toes (she thinks maybe its her positioning). Cervicogenic headache: Rght neck pain which cause a burning/melting sensation into- right occipital, parietal, temporal region- lasts about 30-60 seconds- this is triggered by cervical movement (not specific movement). Trigeminal neuralgia headache: a stabbing throbbing pain in right restorationism a/w right eye tearing, but unaware of redness/weakness- now triggered by turning her head. 11/29/23, MR/MR head/brain wo/w con IMPRESSION: A small vessel courses superior to the right trigeminal nerve cisternal segment without sara compression. The visualized aspects of the bilateral trigeminal nerves appear within normal limits. [facility] Medical History (Updated 01/20/25 @ 23:25 by CELINE Carreno) Intussusception intestine Surgical History (Updated 01/13/25 @ 09:24 by CELINE Carreno) History of sleeve gastrectomy [place] teeth extracted Family History Father Hypotension Mother Hypertension Social History Alcohol intake: current Alcohol intake frequency: holidays/special occasions only Patient Tobacco Use Status: Current someday Tobacco user Substance Use Type: Marijuana Physical Exam Const General: cooperative and no acute distress Orientation/consciousness: patient oriented x3 Resp Effort & Inspection: normal respiratory effort and able to speak in complete sentences Neuro General: patient oriented x3 Cognition (Neuro): normal cognition Psych Appearance: grossly normal Mental Status: mental status grossly normal Speech and movement: Normal speech and movement present Affect: normal affect Attitude: cooperative Telehealth Telehealth Telehealth Platform: [facility] Location of provider rendering services: practice address Location of patient: address on file Patient Identification confirmed using: Name, : Yes Telehealth method: video Patient verbally consented to treatment: Yes Patient verbally consented to billing insurance company: Yes Patient informed of any privacy concerns related to visit: Yes Minutes spent on Phone/Video with Pt.: 24 Assessment & Plan Assessment & Plan (1) Migraine: Comment: ? if right toe tingling is migraine sensory aura Code(s): G43.909 - Migraine, unspecified, not intractable, without status migrainosus Category: Medical (2) Cervicogenic headache: Code(s): G44.86 - Cervicogenic headache Category: Medical (3) Trigeminal neuralgia of right side of face: Code(s): G50.0 - Trigeminal neuralgia Category: Medical (4) Tremor: Code(s): R25.1 - Tremor, unspecified Category: Medical (5) Muscle spasm: Code(s): M62.838 - Other muscle spasm Category: Medical (6) Cervicalgia: Code(s): M54.2 - Cervicalgia Category: Medical (7) Hair loss: Code(s): L65.9 - Nonscarring hair loss, unspecified Category: Medical (8) History of sleeve gastrectomy: Code(s): Z90.3 - Acquired absence of stomach [part of] Category: Surgical Plan Discussion Notes I discussed potential causes of the patient's tremors, weighing both familial tremor issues and potential dehydration or electrolyte imbalances. The patient reported almost daily tremor occurrences. We reviewed the normal brain MRA results and noted that a neck evaluation might help elucidate the role of cervicalgia. The importance of rehydration was underscored as part of addressing possible electrolyte abnormalities. Essential tremor was considered an option, and I reassured the patient that structural abnormalities are unlikely. Next steps will include running laboratory tests to evaluate thyroid function and electrolytes, considering possible nutrient deficiencies due to a gastrointestinal bypass. Follow-up labs will be coordinated, and the potential for evaluating a specific essential tremor diagnosis will be considered further based on the results. Patient was informed and verbally consented to the use of an ambient scribe for clinic note documentation during this visit. Plan and Patient Instructions For tremor: Check labs for common etiologies. Increase fluid intake to address possible dehydration and tremors. Monitor tremor occurrences and note any changes or patterns. Consider f/u cervical iamging upon review For newer right-sided headache triggered by cervical rotation c/w trigeminal neuralgia: brain MRI w/wo: a small vessel courses superior to the right trigeminal nerve cisternal segment without sara compression. reviewed brain MRA w/o- unremarkable May hold Tegretol Er 100mg bid- pt would like to minimize med use. For acute headache treatment: Continue Ubrogepant (Ubrelvy) 100mg tab, 1/2 - 1 tab (50-100mg) at onset of headache, may repeat in 2 hours. Max of 2 tabs (200mg) per 24 hours. May adjunct with OTC Tylenol 650mg q 4 hours, Ibuprofen 600mg q 6 hours, or Naproxen 440mg q 12 hrs prn. Previous acute migraine medication trials: Sumatriptan 50mg prn- ineffective. Sumatriptan 100mg- not tolerated. Rizatripatn- not tolerated. Acute migraine medication contraindications: None at this time. ? For headache prevention medication: Continue Baclofen 5-10mg qhs prn. Continue Emgality 120mg q month. Previous migraine prevention medication trials: Amitriptyline- used for mood- did not help headaches. Topiramate- not tolerated. B2 and Mag- ineffective. Migraine prevention medication contraindications: BBs d/t dx of asthma. For alopecia: Pt previously referred to dermatology. Discussed there are ancedotal reports of hair loss w/ CGRP antagonsists, however hair loss can be multi-factorial and triggered by stress/changes many months prior to onset of hair loss. She may trial OTC Vitamin B-5. ? F/u in 3-4 months or sooner prn new/worsening s/s. Orders: Orders Comprehensive Met. Panel 01/13/25 D64.9 - Anemia, unspecified, R25.1 - Tremor, unspecified, M62.838 - Other muscle spasm, Z90.3 - Acquired absence of stomach [part of], E63.9 - Nutritional deficiency, unspecified, F41.9 - Anxiety disorder, unspecified Vitamin B12 and Folate 01/13/25 D64.9 - Anemia, unspecified, R25.1 - Tremor, unspecified, M62.838 - Other muscle spasm, Z90.3 - Acquired absence of stomach [part of], E63.9 - Nutritional deficiency, unspecified, F41.9 - Anxiety disorder, unspecified Folate 01/13/25 D64.9 - Anemia, unspecified, R25.1 - Tremor, unspecified, M62.838 - Other muscle spasm, Z90.3 - Acquired absence of stomach [part of], E63.9 - Nutritional deficiency, unspecified, F41.9 - Anxiety disorder, unspecified Magnesium 01/13/25 D64.9 - Anemia, unspecified, R25.1 - Tremor, unspecified, M62.838 - Other muscle spasm, Z90.3 - Acquired absence of stomach [part of], E63.9 - Nutritional deficiency, unspecified, F41.9 - Anxiety disorder, unspecified Homocysteine 01/13/25 D64.9 - Anemia, unspecified, R25.1 - Tremor, unspecified, M62.838 - Other muscle spasm, Z90.3 - Acquired absence of stomach [part of], E63.9 - Nutritional deficiency, unspecified, F41.9 - Anxiety disorder, unspecified Ferritin 01/13/25 D64.9 - Anemia, unspecified, R25.1 - Tremor, unspecified, M62.838 - Other muscle spasm, Z90.3 - Acquired absence of stomach [part of], E63.9 - Nutritional deficiency, unspecified, F41.9 - Anxiety disorder, unspecified Methylmalonic Acid 01/13/25 D64.9 - Anemia, unspecified, R25.1 - Tremor, unspecified, M62.838 - Other muscle spasm, Z90.3 - Acquired absence of stomach [part of], E63.9 - Nutritional deficiency, unspecified, F41.9 - Anxiety disorder, unspecified Vitamin B6 01/13/25 D64.9 - Anemia, unspecified, R25.1 - Tremor, unspecified, M62.838 - Other muscle spasm, Z90.3 - Acquired absence of stomach [part of], E63.9 - Nutritional deficiency, unspecified, F41.9 - Anxiety disorder, unspecified Vitamin D 25-OH (D2 and D3) 01/13/25 D64.9 - Anemia, unspecified, R25.1 - Tremor, unspecified, M62.838 - Other muscle spasm, Z90.3 - Acquired absence of stomach [part of], E63.9 - Nutritional deficiency, unspecified, F41.9 - Anxiety disorder, unspecified IRON PROFILE 01/13/25 D64.9 - Anemia, unspecified, R25.1 - Tremor, unspecified, M62.838 - Other muscle spasm, Z90.3 - Acquired absence of stomach [part of], E63.9 - Nutritional deficiency, unspecified, F41.9 - Anxiety disorder, unspecified Erythrocyte Sedimentation Rate 01/13/25 D64.9 - Anemia, unspecified, R25.1 - Tremor, unspecified, M62.838 - Other muscle spasm, Z90.3 - Acquired absence of stomach [part of], E63.9 - Nutritional deficiency, unspecified, F41.9 - Anxiety disorder, unspecified CRP High Sensitivity 01/13/25 D64.9 - Anemia, unspecified, R25.1 - Tremor, unspecified, M62.838 - Other muscle spasm, Z90.3 - Acquired absence of stomach [part of], E63.9 - Nutritional deficiency, unspecified, F41.9 - Anxiety disorder, unspecified Rheumatoid Factor 01/13/25 D64.9 - Anemia, unspecified, R25.1 - Tremor, unspecified, M62.838 - Other muscle spasm, Z90.3 - Acquired absence of stomach [part of], E63.9 - Nutritional deficiency, unspecified, F41.9 - Anxiety disorder, unspecified Vitamin B1 01/13/25 D64.9 - Anemia, unspecified, R25.1 - Tremor, unspecified, M62.838 - Other muscle spasm, Z90.3 - Acquired absence of stomach [part of], E63.9 - Nutritional deficiency, unspecified, F41.9 - Anxiety disorder, unspecified Vitamin C 01/13/25 D64.9 - Anemia, unspecified, R25.1 - Tremor, unspecified, M62.838 - Other muscle spasm, Z90.3 - Acquired absence of stomach [part of], E63.9 - Nutritional deficiency, unspecified, F41.9 - Anxiety disorder, unspecified Copper, serum 01/13/25 D64.9 - Anemia, unspecified, R25.1 - Tremor, unspecified, M62.838 - Other muscle spasm, Z90.3 - Acquired absence of stomach [part of], E63.9 - Nutritional deficiency, unspecified, F41.9 - Anxiety disorder, unspecified Complete Blood Count Auto Diff 01/13/25 D64.9 - Anemia, unspecified, R25.1 - Tremor, unspecified, M62.838 - Other muscle spasm, Z90.3 - Acquired absence of stomach [part of], E63.9 - Nutritional deficiency, unspecified, F41.9 - Anxiety disorder, unspecified TSH reflex Free T4 01/13/25 D64.9 - Anemia, unspecified, R25.1 - Tremor, unspecified, M62.838 - Other muscle spasm, Z90.3 - Acquired absence of stomach [part of], E63.9 - Nutritional deficiency, unspecified, F41.9 - Anxiety disorder, unspecified Lyme IgG/IgM w/reflex to WB 01/13/25 D64.9 - Anemia, unspecified, R25.1 - Tremor, unspecified, M62.838 - Other muscle spasm, Z90.3 - Acquired absence of stomach [part of], E63.9 - Nutritional deficiency, unspecified, F41.9 - Anxiety disorder, unspecified DUGLAS Reflex Titer and Pattern 01/13/25 D64.9 - Anemia, unspecified, R25.1 - Tremor, unspecified, M62.838 - Other muscle spasm, Z90.3 - Acquired absence of stomach [part of], E63.9 - Nutritional deficiency, unspecified, F41.9 - Anxiety disorder, unspecified Zinc 01/13/25 D64.9 - Anemia, unspecified, R25.1 - Tremor, unspecified, M62.838 - Other muscle spasm, Z90.3 - Acquired absence of stomach [part of], E63.9 - Nutritional deficiency, unspecified, F41.9 - Anxiety disorder, unspecified Coding Level of Care Code Est Pt Level 4 (61637) Diagnoses Migraine G43.909 Cervicogenic headache G44.86 Trigeminal neuralgia of right side of face G50.0 Tremor R25.1 Muscle spasm M62.838 Cervicalgia M54.2 Hair loss L65.9 History of sleeve gastrectomy Z90.3
--- OUTSIDE RECORDS SUMMARY | 2025-01-13 08:43 | XMS_ITS | Clinical Summary ---
Author Organization [facility] Address [address] [place] [address] Care Team Providers Care Cylinder Press Operator Apprentice Name Role Phone Unavailable Primary Care Provider Unavailabl e Source Comments PLEASE NOTE, if this patient is a minor, it may be UNLAWFUL to discuss sensitive information that is contained in these records (such as FAMILY PLANNING, MENTAL HEALTH or SUBSTANCE ABUSE) with the minor patient's parent or other person without the patient's specific authorization.[facility] Allergies No known active allergies Medications hydrOXYzine HCL (ATARAX) 10 mg tabletIndications :Anxiety Take 1 Tab by mouth 3 (three) times daily as needed for anxiety 40 Tab 1 0 Active traZODone (DESYREL) 50 mg tabletIndications :Insomnia due to other mental disorder Take 1 Tab by mouth nightly at bedtime 30 Tab 3 0 Active albuterol sulfate 90 mcg/actuation inhalerIndication s:Suspected COVID-19 virus infection,Moderat e persistent asthma with acute exacerbation (HHS-HCC) Inhale 2 Puffs into the lungs every 4 (four) hours as needed for shortness of breath or wheezing 18 g 2 0 Active mometasone (ASMANEX HFA) 100 mcg/actuation HFAAIndications:M oderate persistent asthma with status asthmaticus (HHS-HCC) Inhale 2 Puffs into the lungs every 12 (twelve) hours 13 g 3 0 Active fluticasone furoate (ARNUITY ELLIPTA) 100 mcg/actuation dsdvIndications:M oderate persistent asthma with status asthmaticus (HHS-HCC) Inhale 1 Puff into the lungs once daily 30 Each 5 0 Active Active Problems Problem Noted Date Diagnosed Date Suspected COVID-19 virus infection 03/02/2020 Overview (03/02/2020): COVID-19 Tracking [reviewed or updated 03/02/2020] ? ? Exposure to confirmed case or travel risk - Yes, Date02/20 ? ? Date that symptoms began - January 17 ? ? Patient risk factors for severe COVID-19: None ? ? 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 ? COVID-19 Tested? - No ? ? Is patient ? No Anxiety and depression 04/06/2016 Mild intermittent asthma (HHS-HCC) 04/06/2016 Obesity (BMI 30-39.9) 04/06/2016 Immunizations Immunization Administration Dates Next Due HPV 9 (Gardasil) 04/02/2018 Family History Medical History Relation Name Comments Diabetes Father Hypertension Father Cancer Mother Relation Name Status Comments Father Alive Mother Alive Social History Tobacco Use Types Packs/Day Years Used Date Smoking Tobacco: Former Smokeless Tobacco: Never Alcohol Use Standard Drinks/Week Comments No 0 (1 standard drink = 0.6 oz pur e alcohol) Social Connections Answer Date Recorded Social Connections and Isolation 0 06/07/2019 Financial Resource Strain Answer Date R ecorded Financial Resource Strain 0 2018 Stress Answer Date Recorded Stress 0 06/07/2019 Physical Activity Answer Date Recorded Physical Activity 0 06/07/2019 Food Insecurity Answer Date Recorded Food 0 06/07/2019 Transportation Needs Answer Date Record ed Transportation 0 06/07/2019 Housing Stability Answer Date Recorded Housing 0 06/07/2019 Safety and Environment Answer Date German rded Safety 0 06/07/2019 Utilities Answer Date Recorded Utilities 0 06/07/2019 Employment Answer Date Recorded Employment 0 06/07/2019 Comments No Sex and Gender Information Value Date Recorded Sex Assigned at Female 04/02/2018 11:11 AM PDT Legal Sex Female 9:58 AM PDT Gender Identity Female 04/02/2018 11:11 AM PDT Sexual Orientation Bisexual 04/02/2018 11 :11 AM PDT Occupation Industry Job Start Date Job End Date Not on file Not on file Not on file Not on file Last Filed Vital Signs Vital Sign Reading Time Taken Comments Blood Pressure 92/70 01/20/2019 9:59 AM EDT Pulse 96 01/20/2019 9:59 AM EDT Temperature 36.8 ??C (98.2 ??F) 01/20/2019 9:59 AM ED T Respiratory Rate 16 01/20/2019 9:59 AM EDT Oxygen Saturation - - Inhaled Oxygen Concentration - - Weight 89.8 kg (198 lb) 01/20/2019 9:59 AM EDT Height 152.4 cm (5') 01/20/2019 9:59 AM EDT Body Mass Index 38.67 01/20/2019 9:59 AM EDT Plan of Treatment Not on file
--- OUTSIDE RECORDS SUMMARY | 2025-01-13 08:43 | XMS_ITS | Clinical Summary ---
Author Organization [employer] [facility] Address [address] [place] [address] Care Team Providers Care Tenoner Operator Name Role Phone Shiloh Hernandes MD Primary Care Provider Allergies Active Allergy Reactions Criticality Noted Date Comments Adhesive 09/18/2023 Medications albuterol (VENTOLIN HFA) 90 mcg/actuation inhaler Inhale 11/26/2006 Active albuterol (VENTOLIN HFA) 90 mcg/actuation inhaler Inhale 2 puffs every 4 (four) hours as needed 03/12/2019 Active fluticasone furoate (Arnuity Ellipta) 100 mcg/actuation dsdv Inhale 1 puff 07/04/2020 Active fluticasone furoate (ARNUITY ELLIPTA INHL) Inhale 09/01/2020 Activ e Emgality Pen 120 mg/mL pnij 09/09/2023 Acti ve hydrOXYzine (ATARAX) 10 MG tablet Take 1 tablet (10 mg total) by mouth 3 (three) times a day as needed 03/10/2020 Active mometasone (Asmanex HFA) 100 mcg/actuation HFAA Inhale 2 puffs 06/28/2020 Active naproxen sodium (ANAPROX) 550 MG tablet Take 1 tablet (550 mg total) by mouth 08/04/2020 Active nortriptyline (PAMELOR) 10 MG capsule Take 1 capsule (10 mg total) by mouth 11/02/2020 Active SUMAtriptan (IMITREX) 50 MG tablet Take 1 tablet (50 mg total) by mouth 09/01/2020 Active traZODone (DESYREL) 50 MG tablet Take 1 tablet (50 mg total) by mouth 03/10/2020 Active Social History Tobacco Use Types Packs/Day Years Used Date Smoking Tobacco: Never Smokeless Tobacco: Never Tobacco Cessation:Counseling Given: Not Answered Comments No Sex and Gender Information Value Date Recorded Sex Assigned at Not on file Legal Sex Female 4:10 PM EST Gender Identity Not on file Sexual Orientation Not on file Last Filed Vital Signs Vital Sign Reading Time Taken Comments Blood Pressure - - Pulse 94 09/18/2023 5:32 PM EST Temperature 36.4 ??C (97.6 ??F) 09/18/2023 5:32 PM ES T Respiratory Rate 18 09/18/2023 5:32 PM EST Oxygen Saturation 99% 09/18/2023 5:32 PM EST Inhaled Oxygen Concentration - - Weight - - Height - - Body Mass Index - - Plan of Treatment Health Maintenance Due Date Last Done Comments Depression: Screening Annual ly using PHQ-2/9 in Adults 18 yrs or above (or HM Modifier)([facility]) 2013 Hepatitis C Virus Infection in Adolescents and Adults: Screening (or Modifier) ([facility]) 2013 SDND Screening Reminder: Savi steiner for all adults ([facility]) 2013 Tobacco Smoking Cessation: i n Adults excluding Women: Behavioral and Pharmacotherapy Interventions ([facility]) 2013 DTaP/Tdap/Td Vaccines ([facility]) (1 - Tdap) 2014 Lipid Screening: Once for Wo men aged 20 to 45 yrs ([facility]) 2015 Cervical Cancer Screenin 1-65 yrs of age (or Modifier) 01/09/2016 Cervical Cancer Screening: P ap every 3 yrs pts age 21-65 01/09/2016 Cervical Cancer: Pap Screeni ng with Modifier timing ([facility]) 01/09/2016 Cervical Cancer: hrHPV alone or with cotesting Pap for Pts 30-65yrs screening every 5yrs ([facility]) 01/09/2016 Flu Vaccination: Yearly for ages 18mos through 64 years (or Modifier)([facility]) 05/14/2024 COVID-19 Vaccine Screening: Initial Series and Booster Status ([facility]) ( - 2023- season) 2024 Zoster/Shingles Vaccine Seri es Screening: Adults aged 18+ yrs (or HM Modifiers)([facility]) (1 of 2) 2045 Pneumococcal Vaccination Scr eening: Pts 0-19 & 19-49 yrs of age ([facility]) Aged Out No longer eligible based on patient's age to complete this topic Medical Devices Not on file Insurance [facility] Care Teams Tenoner Operator Relationship Specialty Start Date End Date Shiloh Hernandes MD [address] [place] [address] [place] [phone] PCP - General Family Medicine 09/18/23
--- OUTSIDE RECORDS SUMMARY | 2025-01-13 08:43 | XMS_ITS | Clinical Summary ---
Author Organization [facility] Address [address] [place] [address] [place] [phone] Phone Care Team Providers Care Marketing Performance Analyst Name Role Phone Pcp, Not Required Primary Care Provider Unavaila ble Self-Referred, Patient Unavailable Unavailab le Allergies No known active allergies Medications Medication Sig Dispensed Refills Start Date End Date Status albuterol 90 mcg/actuation inhaler Inhale 2 puffs into the lungs every 6 (six) hours as needed for wheezing. 1 Inhaler 03/12/2019 Active Active Problems No known active problems Social History Tobacco Use Types Packs/Day Years Used Date Smoking Tobacco: Some Days Smokeless Tobacco: Never Alcohol Use Standard Drinks/Week Comments Yes 0 (1 standard drink = 0.6 oz pur e alcohol) Education Answer Date Recorded Are you interested in more education? Not on rojas e 07/30/2024 Are you concerned about learning? Not on file 07/30/2024 No 07/30/2024 No 07/30/2024 Digital Access Answer Date Recorded No 07/30/2024 No 07/30/2024 Reliable internet access at home? Not on file 07/30/2024 Device with a working camera? Not on file Sex and Gender Information Value Date Recorded Sex Assigned at Female 07/16/2023 3:53 PM EDT Gender Identity Female 07/16/2023 3:53 PM EDT Sexual Orientation Something else 07/16/2023 3: 53 PM EDT Last Filed Vital Signs Vital Sign Reading Time Taken Comments Blood Pressure 107/66 03/12/2019 7:29 PM EDT Pulse 90 03/12/2019 7:32 PM EDT Temperature 36.6 ??C (97.9 ??F) 03/12/2019 3:23 PM ED T Respiratory Rate 14 03/12/2019 7:32 PM EDT Oxygen Saturation 99% 03/12/2019 7:29 PM EDT Inhaled Oxygen Concentration - - Weight - - Height - - Body Mass Index - - Plan of Treatment Upcoming Encounters Date Type Department Care Team (Late st Contact Info) Description 03/10/2025 10:40 AM EDT Appointment [facility] Internal Medicine [address] [place] [address] Estevan Euceda PA-C [address] [place] [address] [email or web address] Health Maintenance Due Date Last Done Comments Adult Td,Tdap Booster 1995 DEPRESSION SCREENING 2007 SMOKING Hx and SMOKELESS TOBACCO SCREENING 01/09/2008 HEPATITIS C SCREENING 2013 HIV ONE-TIME SCREENING (18-6 5 YEARS) 2013 PNEUMOCOCCAL VACCINES (0-49 years) (2 of 2 - PCV) 11/28/2021 11/28/2020 PAP SMEAR 10/12/2023 10/12/2020 INFLUENZA VACCINE (#1) 2024 2, 11/28/2020 COVID-19 VACCINE (1 - 2023-2 5 season) 2024 HEPATITIS A VACCINES Aged Out No long er eligible based on patient's age to complete this topic HIB VACCINES Aged Out No longer eligi ble based on patient's age to complete this topic MENINGOCOCCAL VACCINES (ACWY) Aged Out No longer eligible based on patient's age to complete this topic Medical Devices Not on file Care Teams Marketing Performance Analyst Relationship Specialty Start Date End Date Pcp, Not Required [address] [place] [id number] PCP - General 09/15/24 Self-Referred, Patient 09/15/24 Additional Source Comments The information contained in this document represents components of the legal health record. It is not the complete legal health record.[facility]
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
== END 2025-01-13 10:45 | disposition home or self-care (01) ==
LOC: HO.HSMS 08:26
PROVIDERS: PCP Family Medicine; Visit Provider Nurse Practitioner Family
DX: G43.909 Migraine, unspecified, not intractable, without status migrainosus (principal); G44.86 Cervicogenic headache; G50.0 Trigeminal neuralgia; R25.1 Tremor, unspecified; M62.838 Other muscle spasm; M54.2 Cervicalgia; L65.9 Nonscarring hair loss, unspecified; Z90.3 Acquired absence of stomach [part of]
CPT/HCPCS: 99214

== ENCOUNTER 2025-02-05 15:31 | Outpatient (REF) | payer OTHER, SELFPAY ==
--- OUTSIDE RECORDS SUMMARY | 2025-02-05 16:03 | XMS_ITS | Clinical Summary ---
Author Organization [facility] Address [address] [place] [address] [place] [phone] Phone Care Team Providers Care Corporate Financial Analyst Name Role Phone Pcp, Not Required [...] Info) Description 03/10/2025 10:40 AM EDT Appointment [facility] Internal Medicine [address] [place] [address] Estevan Euceda PA-C [address] [place] [address] [email or web address] Maintenance Due Date Last Done Comments Adult Td,Tdap Booster 1995 DEPRESSION SCREENING 2007 SMOKING Hx and SMOKELESS TOB ACCO SCREENING 01/09/2008 HEPATITIS C SCREENING 2013 HIV ONE-TIME SCREENING (18-6 5 YEARS) 2013 PNEUMOCOCCAL VACCINES (0-49 years) (2 of 2 - PCV) 11/28/2021 11/28/2020 PAP SMEAR 10/12/2023 10/12/2020 COVID-19 VACCINE (1 - 2023-2 5 season) [...] Medical Devices Not on file Care Teams Corporate Financial Analyst Relationship Specialty Start Date End Date Pcp, Not Required [address] [place] [phone] PCP - General 09/15/24 Self-Referred, Patient 09/15/24 Additional Source Comments The information contained in this document represents components of the legal health record. It is not the complete legal health record.[facility]
--- OUTSIDE RECORDS SUMMARY | 2025-02-05 16:03 | XMS_ITS | Clinical Summary ---
Author Organization [facility] Address [address] [place] [address] Care Team Providers Care Stamp Mounter Name Role Phone Unavailable Primary Care Provider [...] COVID-19: None ? ? 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 ? COVID-19 Tested? - No ? [...]
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
[2025-02-05 16:07] LABS: MANUAL DIFF FLAG NO
[2025-02-05 16:47] LABS: Basophils Percent Auto 0.5 % (0-2); Eosinophils Absolute Auto 0.2 X10*3/uL (0.0-0.4); Eosinophils Percent Auto 2.1 % (0-4); Hematocrit 43.5 % (37.0-47.0); Hemoglobin 14.5 g/dl (12.0-16.0); Imm Gran Abs Auto 0.02 X10*3/uL (0.00-0.03); Imm Gran Pct Auto 0.2 % (0.0-0.4); Lymphocytes Absolute Auto 2.3 X10*3/uL (1.2-4.9); Lymphocytes Percent Auto 27.8 % (20-40); Mean Corpuscular HGB Conc 33.3 g/dl (31.0-35.0); Mean Corpuscular Hemoglobin 30.1 pg (27.0-33.0); Mean Corpuscular Volume 90.4 fL (80.0-98.0); Mean Platelet Volume 9.9 fL (9.4-12.3); Monocytes Absolute Auto 0.3 X10*3/uL (0.1-1.2); Monocytes Percent Auto 3.4 % (2-11); Neutrophils Absolute Auto 5.4 x10*3/uL (2.0-8.3); Platelet Count 269 X10*3/uL (160-400); Red Blood Count 4.81 X10*6/uL (4.20-5.50); Red Cell Distribution Width 12.5 % (11.0-16.0); White Blood Count 8.2 X10*3/uL (4.8-10.8)
[2025-02-05 17:13] LABS: Alanine Aminotransferase 12 U/L (0-31); Albumin Level 4.4 g/dL (3.5-5.0); Alkaline Phosphatase 63 U/L (39-117); Anion Gap 13 (12-20); Aspartate Amino Transferase 19 U/L (5-31); Bilirubin Total 0.8 mg/dL (0.0-1.0); Blood Urea Nitrogen 10 mg/dL (9-16); Calcium 9.5 mg/dL (8.4-10.2); Carbon Dioxide 24 mmol/L (22-29); Chloride 105 mmol/L (96-108); Estimated Glomerular Filt Rate > 60; Glucose Random 72 mg/dL (60-115); Potassium 3.9 mmol/L (3.3-5.1); Sodium 138 mmol/L (135-145); Total Protein 7.8 g/dL (6.5-8.0)
[2025-02-05 17:17] LABS: Parathyroid Hormone Intact 85.1 pg/mL (8.7-77.1)
[2025-02-05 17:45] LABS: Folate 6.5 ng/mL (> or = 4.0)
[2025-02-08 17:24] LABS: Copper, serum 133 mcg/dL (70-175)
[2025-02-08 17:43] LABS: Homocysteine 14.2 umol/L (<10.4)
[2025-02-08 19:49] LABS: Zinc 68 mcg/dL (60-130)
[2025-02-08 21:38] LABS: Calcium, Ionized 5.1 mg/dL (4.7-5.5)
[2025-02-09 04:34] LABS: Vitamin C 0.8 mg/dL (0.3-2.7)
[2025-02-17 16:13] LABS: Parathyroid Hormone Related Pr 13 pg/mL (11-20)
== END 2025-02-05 15:32 | disposition home or self-care (01) ==
LOC: HO.LAB 15:31
PROVIDERS: PCP Internal Medicine; Visit Provider Nurse Practitioner Family
DX: G50.0 Trigeminal neuralgia (principal); D64.9 Anemia, unspecified; R25.1 Tremor, unspecified; M62.838 Other muscle spasm; Z90.3 Acquired absence of stomach [part of]; E63.9 Nutritional deficiency, unspecified; F41.9 Anxiety disorder, unspecified; E55.9 Vitamin D deficiency, unspecified
CPT/HCPCS: 36415; 80053; 82180; 82330; 82525; 82746; 83090; 83519; 83970; 84630; 85025

== ENCOUNTER 2025-04-29 09:31 | Outpatient (AMB) | payer OTHER, SELFPAY ==
[2025-04-29 09:35] VITALS: BP 90/54; PULSE 103; O2SAT 96; BMI 23.3
--- NOTE | 2025-04-29 09:35 | A.OFFVIS_ITS ---
Vital Signs 04/29/25 09:35 Height 4 ft 11 in Weight 115 lb 8.356 oz BMI 23.3 BP 90/54 L Blood Pressure Location Lt brachial Position Sitting Pulse 103 H Pulse Source Pulse Oximeter Pulse Oximetry (%) 96 Oxygen Delivery Method Room Air Intake Visit Reasons: Vitamin D deficiency, unspecified Intake Note: New patient present today for Vitamin D deficiency, unspecified. Psychiatric Nurse Practitioner Required: No Accompanied by: Self / Same As Patient Allergies adhesive tape Allergy (Unknown, Verified 04/29/25 09:38) Blister Medication List - Last Reconciled 04/29/25 by Bev No MD albuterol sulfate 90 mcg/actuation (Ventolin HFA) 2 puffs inhalation Q4-6H PRN shafiax-liwykoacryvfe-nmburthv 250-250-65 mg (Excedrin Migraine) 1 tab PO Q4-6H PRN baclofen 5 - 10 mg (1 - 2 x 5 mg) PO BEDTIME 30 days carbamazepine ER (Tegretol XR) 100 mg PO BID 90 days Held on 07/08/24. Instructions: Doctor's Order cholecalciferol (vitamin D3) 1,250 mcg PO QWEEK 12 days cyanocobalamin (vitamin B-12) 500 mcg PO DAILY 30 days galcanezumab-gnlm (Emgality Pen) 120 mg subcut ONCE 30 days sucralfate (Carafate) 10 mL PO QIDACHS ubrogepant (Ubrelvy) 50 - 100 mg (0.5 - 1 x 100 mg) PO ONCE PRN 30 days HPI Comments Details: 30-year-old female coming in today for initial evaluation of vitamin-D deficiency and PTH elevation. Chart review shows blood work from January 2025 showed vitamin-D very low at 4, and no surprises PTH was elevated at 85.1. Normal calcium levels at 9.5, albumin 4.4, corrected calcium would be 9.1, normal ionized calcium of 5.1, normal kidney function. 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 Cardiac: normal heart rate Pulm: normal pulmonary Abd: not distended Extremities: no edema, no signs of myxedema Neuro: AAO x3, Speech: normal, no facial droop, moving all 4 extremities Laboratory Tests 01/13/25 02/05/25 11:44 16:05 Creatinine 0.86 Estimated GFR > 60 Calcium 9.1 9.5 Ionized Calcium 5.1 Albumin 4.0 4.4 25-OH Vitamin D Total 4 L 25-Hydroxy Vitamin D2 <4 25-Hydroxy Vitamin D3 4 PTH Intact 85.1 H PTH Related Protein 13 PFSH Medical History (Updated 04/29/25 @ 10:01 by Bev No MD) Thyromegaly Intussusception intestine Surgical History History of sleeve gastrectomy [place] teeth extracted Family History Father Hypotension Mother Hypertension Social History Alcohol intake: current Alcohol intake frequency: holidays/special occasions only Patient Tobacco Use Status: Current someday Tobacco user Substance Use Type: Marijuana Physical Exam Vital Signs: Last Vital Signs Pulse 103 H 04/29/25 09:35 BP 90/54 L 04/29/25 09:35 Pulse Ox 96 04/29/25 09:35 Oxygen Delivery Method Room Air 04/29/25 09:35 BMI result Body Mass Index 23.3 Assessment & Plan Assessment & Plan (1) Vitamin D deficiency: Code(s): E55.9 - Vitamin D deficiency, unspecified Category: Medical Plan: 30-year-old female coming in today for initial evaluation of vitamin-D deficiency and elevation of PTH level. Chart review shows blood work from January 2025 showed vitamin-D very low at 4, and no surprises PTH was elevated at 85.1. Normal calcium levels at 9.5, albumin 4.4, corrected calcium would be 9.1, normal ionized calcium of 5.1, normal kidney function. PTH is always elevated in the setting of vitamin-D deficiency especially to this degree because that is a physiologic compensation by the body. It is no surprise that a PTH would be elevated when vitamin-D is this low. I am not sure why the PTH was checked in this setting. Regardless she is on adequate supplementation with 85771 units weekly. She has going to complete her 12 week course in about 3 weeks. Vitamin-D levels can be repeated after that, I will have her repeat blood work at [facility] since I have also had some PTH elevations at [place] lab which has been incorrect. I have told her when she is done with her 35452 units weekly course, she should switch 2311-3398 units daily vitamin-D. She also has a poor nutritional intake of calcium which will also result in PTH elevation. This is all likely secondary hyperparathyroidism in the setting of vitamin-D deficiency and poor nutritional intake of calcium. Otherwise kidney function is normal. She does not have any hypercalcemia. No history of kidney stones or fractures to suggest any other underlying PTH disorder. Plan: -complete vitamin-D 98400 units 12 week course -then switch 8139-0433 units of vitamin-D daily -incorporate calcium in diet to accommodate 4000 do 1200 mg of calcium intake daily which is roughly 2-3 calcium rich foods daily -repeat blood work ordered for [facility] Follow up in 7 weeks to discuss results (2) Elevated parathyroid hormone: Code(s): R79.89 - Other specified abnormal findings of blood chemistry Category: Medical Plan: See above (3) Thyromegaly: Code(s): E01.0 - Iodine-deficiency related diffuse (endemic) goiter Category: Medical Plan: During my exam I felt a prominent right side of the thyroid with possibly right- sided thyroid nodule. We will order ultrasound of the thyroid. She does have some issues with swallowing. Plan: -ordered ultrasound of the thyroid -follow up in 7 weeks to discuss results Plan I spent 45 minutes in reviewing the record, seeing the patient and documenting in the medical record. Orders: Orders Calcium 05/17/25 E55.9 - Vitamin D deficiency, unspecified, R79.89 - Other specified abnormal findings of blood chemistry Calcium, Ionized 05/17/25 E55.9 - Vitamin D deficiency, unspecified, R79.89 - Other specified abnormal findings of blood chemistry US thyroid Today E01.0 - Iodine-deficiency related diffuse (endemic) goiter Albumin Level 05/17/25 E55.9 - Vitamin D deficiency, unspecified, R79.89 - Other specified abnormal findings of blood chemistry Phosphorus 05/17/25 E55.9 - Vitamin D deficiency, unspecified, R79.89 - Other specified abnormal findings of blood chemistry Parathyroid Hormone Intact 05/17/25 E55.9 - Vitamin D deficiency, unspecified, R79.89 - Other specified abnormal findings of blood chemistry Vitamin D 25-OH Total 05/17/25 E55.9 - Vitamin D deficiency, unspecified, R79.89 - Other specified abnormal findings of blood chemistry Magnesium 05/17/25 E55.9 - Vitamin D deficiency, unspecified, R79.89 - Other specified abnormal findings of blood chemistry Creatinine 05/17/25 E55.9 - Vitamin D deficiency, unspecified, R79.89 - Other specified abnormal findings of blood chemistry Patient Instructions: complete 12 weeks course of vitamin D 82581 units weekly Increase calcium intake in diet to incorporate 1000 mg of calcium daily, roughly 2-3 servings of calcium rich foods daily after you are dine with 68236 units vitamin d course, switch to 1000 to 2000 units daily intake of vitamin d supplements Do blood work at [address] Please make sure they fax results to my office Do ultrasound thyroid , someone will call you to schedule his Follow up in 7 weeks to discuss all results Coding Level of Care Code New Pt Level 4 (67569) Diagnoses Vitamin D deficiency E55.9 Elevated parathyroid hormone R79.89 Thyromegaly E01.0 Time Spent (min) 45
--- OUTSIDE RECORDS SUMMARY | 2025-04-29 09:47 | XMS_ITS | Clinical Summary ---
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 - No Is patient ? No Anxiety and depression [...] 96 01/20/2019 9:59 AM EDT Temperature 36.8 C (98.2 F) 01/20/2019 9:59 AM EDT Respiratory Rate 16 01/20/2019 9:59 AM EDT Oxygen Saturation - - Inhaled Oxygen Concentration - - Weight 89.8 kg (198 lb) 01/20/2019 9:59 AM EDT Height 152.4 cm (5') 01/20/2019 9:59 AM EDT Body Mass Index 38.67 01/20/2019 9:59 AM EDT Plan of Treatment Not on file
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
--- OUTSIDE RECORDS SUMMARY | 2025-04-29 09:48 | XMS_ITS | Clinical Summary ---
Author Organization [facility] Address [address] [address] Care Team Providers Care Tear Down Worker Name Role Phone Shiloh Hernandes MD Primary [...] 94 09/18/2023 5:32 PM EST Temperature 36.4 C (97.6 F) 09/18/2023 5:32 PM EST Respiratory Rate 18 09/18/2023 5:32 PM EST Oxygen Saturation 99% 09/18/2023 5:32 PM EST Inhaled Oxygen Concentration - - Weight - - Height - - Body Mass Index - - Plan of Treatment Health Maintenance Due Date Last Done Comments Depression: Screening Annual ly using PHQ-2/9 in Adults 18 yrs or above (or HM Modifier)([facility]) 2013 Hepatitis C Virus Infection in Adolescents and Adults: Screening (or Modifier) ([facility]) 2013 [facility] Screening Reminder: Savi steiner for all adults ([facility]) 2013 Tobacco Smoking Cessation: i n Adults excluding Women: Behavioral and Pharmacotherapy Interventions ([facility]) 2013 DTaP/Tdap/Td Vaccines ([facility]) (1 - Tdap) 2014 Cervical Cancer Screenin 1-65 yrs of age (or Modifier) 01/09/2016 Cervical Cancer Screening: P ap every 3 yrs pts age 21-65 01/09/2016 Cervical Cancer: Pap Screeni ng with Modifier timing ([facility]) 01/09/2016 Cervical Cancer: hrHPV alone or with cotesting Pap for Pts 30-65yrs screening every 5yrs ([facility]) 01/09/2016 COVID-19 Vaccine Screening: Initial Series and Booster Status ([facility]) ( - 2023- season) 2024 Flu Vaccination: Yearly for ages 18mos through 64 years (or Modifier)([facility]) 05/14/2025 Zoster/Shingles Vaccine Seri es Screening: Adults aged 18+ yrs (or HM Modifiers)([facility]) (1 of 2) 2045 Pneumococcal Vaccination Scr eening: Pts 0-19 & 19-49 yrs of age ([facility]) Aged Out No longer eligible based on patient's age to complete this topic Medical Devices Not on file Insurance [facility] Care Teams Tear Down Worker Relationship Specialty Start Date End Date Shiloh Hernandes MD [address] [place] [phone] PCP - General Family Medicine 09/18/23
== END 2025-04-29 10:07 | disposition home or self-care (01) ==
LOC: HO.ENCR 09:32
PROVIDERS: PCP Internal Medicine; Visit Provider Student in an Organized Health Care Education/Training Program
DX: E55.9 Vitamin D deficiency, unspecified (principal); R79.89 Other specified abnormal findings of blood chemistry; E01.0 Iodine-deficiency related diffuse (endemic) goiter
CPT/HCPCS: 99204

== ENCOUNTER 2025-07-20 14:35 | Outpatient (REF) | payer OTHER, SELFPAY ==
--- NOTE | ~2025-07-20 | US_ITS ---
EXAMINATION: US THYROID HISTORY: E01.0 - Iodine-deficiency related diffuse (endemic) goiter TECHNIQUE: Real-time grayscale ultrasound imaging was performed and images were reviewed. COMPARISON: There are no prior studies available for comparison. FINDINGS: SIZE: The right thyroid lobe measures 4.8 x 1.5 x 1.0 cm. The left thyroid lobe measures 4.1 x 1.2 x 1.3 cm. The isthmus measures 3 mm. FLOW: Flow to the gland is normal. ECHOGENICITY: The echotexture of the gland is homogeneous. NODULES: A tiny 3 mm cyst is seen on the right. There are no solid nodules. US/US thyroid IMPRESSION: 3 mm cyst in the right thyroid lobe. Otherwise unremarkable thyroid ultrasound. ACR TI-RADS Guidelines TR1 (0 points): Benign. No follow-up or biopsy required TR2 (2 points): Not Suspicious. No biopsy or follow up indicated TR3 (3 points): Mildly Suspicious. FNA if >= 2.5 cm, Follow if >= 1.5 cm TR4 (4-6 points): Moderately Suspicious. FNA if >= 1.5 cm, Follow if >= 1.0 cm TR5 (>=7 points): Highly Suspicious. FNA if >= 1.0 cm, Follow if >= 0.5 cm Electronically signed by: Morgan Vargas MD 07/20/2025 03:11 PM EDT
--- OUTSIDE RECORDS SUMMARY | 2025-07-20 17:56 | XMS_ITS | Clinical Summary ---
Author Organization [facility] Address [address] [place] [address] [place] [id number] Phone Care Team Providers Care Aircraft Engine Assembler Name Role Phone Pcp, Not Required Primary Care Provider Unavaila ble Self-Referred, Patient Unavailable Unavailab le Allergies No known active allergies Medications albuterol 90 mcg/actuation inhaler Inhale 2 puffs into the lungs every 6 (six) hours as needed for wheezing. 1 Inhaler 03/12/2019 Active Active Problems No known active problems Immunizations Immunization Administration Dates Next Due HPV9 04/02/2018 Influenza Quadrivalent MDCK Preservative Free IM 12/25/2021,11/28/2020 Pneumococcal polysaccharide PPSV23 11/28/2020 Social History Tobacco Use Types Packs/Day Years [...] with a working camera? Not on file Comments Unknown Sex and Gender Information Value Date Recorded Sex Assigned at Female 07/16/2023 3:53 PM EDT Legal Sex Female 3:14 PM EDT Gender Identity Female 07/16/2023 3:53 PM EDT Sexual Orientation Something else 07/16/2023 3: 53 PM EDT Last Filed Vital Signs Vital Sign Reading Time Taken Comments Blood Pressure 107/66 03/12/2019 7:29 PM EDT Pulse 90 03/12/2019 7:32 PM EDT Temperature 36.6 C (97.9 F) 03/12/2019 3:23 PM EDT Respiratory Rate 14 03/12/2019 7:32 PM EDT Oxygen Saturation 99% 03/12/2019 7:29 PM EDT Inhaled Oxygen Concentration - - Weight - - Height - - Body Mass Index - - Plan of Treatment Health Maintenance Due Date Last Done Comments Adult Td,Tdap Booster 1995 DEPRESSION SCREENING 2007 SMOKING Hx and SMOKELESS TOBACCO SCREENING 01/09/2008 PNEUMOCOCCAL VACCINES (0-49 years) (2 of 2 - PCV) 11/28/2021 11/28/2020 PAP SMEAR 10/12/2023 10/12/2020 INFLUENZA VACCINE (#1) 2025 2, 11/28/2020 COVID-19 VACCINE (1 - 2023-2 5 season) 2025 HEPATITIS C SCREENING Completed 03/06/2021 HIV ONE-TIME SCREENING (18-6 5 YEARS) Completed 03/06/2021 HEPATITIS A VACCINES Aged Out No long er eligible based on patient's age to complete this topic HIB VACCINES Aged Out No longer eligi ble based on patient's age to complete this topic MENINGOCOCCAL VACCINES (ACWY) Aged Out No longer eligible based on patient's age to complete this topic MENINGOCOCCAL VACCINES (B) Aged Out N o longer eligible based on patient's age to complete this topic Medical Devices Not on file Procedures Procedure Name Priority Date/Time Associated Diagnosis Comments OUTSIDE HIV Routine 03/06/2021 OUTSIDE HEPATITIS C VIRUS SCREENING Routine 03/06/2021 from Last 3 Months or Most Recently Relevant to Health Maintenance Results * Outside Hepatitis C Virus Screening (03/06/2021) Hepatitis C Screening - External Neg Historical Provider LAB BLOOD ORDERABLES Janiya l Result * OUTSIDE HIV TEST (03/06/2021) HIV - External Neg us Historical Provider LAB BLOOD ORDERABLES Janiya bermudez Result from Last 3 Months or Most Recently Relevant to Health Maintenance Insurance [address] [place], [place] [address] [place], [place] [address] [place] [place] [address] [address] [place] [address] [place] [address] [place] [address] HMO [facility] HMO Care Teams Aircraft Engine Assembler Relationship Specialty Start Date End Date Pcp, Not Required [address] [place] [id number] PCP - General 09/15/24 Self-Referred, Patient 09/15/24 Additional Source Comments The information contained in this document represents components of the legal health record. It is not the complete legal health record.[facility]
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
--- OUTSIDE RECORDS SUMMARY | 2025-07-20 17:56 | XMS_ITS ---
Author Name [facility] Organization Unknown Care Team Organization Name Specialty Phone Email Start Date End Da renetta [facility] Shiloh Hernandes Primary [facility] 08/21/20222023
--- OUTSIDE RECORDS SUMMARY | 2025-07-20 17:56 | XMS_ITS | Clinical Summary ---
Author Organization [facility] Address [address] [place] [address] Care Team Providers Care Transportation Maintenance Supervisor Name Role Phone Unavailable Primary Care Provider [...] infection,Moderat e persistent asthma with acute exacerbation Inhale 2 Puffs into the lungs every 4 (four) hours as needed for shortness of breath or wheezing 18 g 2 0 Active mometasone (ASMANEX HFA) 100 mcg/actuation HFAAIndications:M oderate persistent asthma with status asthmaticus Inhale 2 Puffs into the lungs every 12 (twelve) hours 13 g 3 0 Active fluticasone furoate (ARNUITY ELLIPTA) 100 mcg/actuation dsdvIndications:M oderate persistent asthma with status asthmaticus Inhale 1 Puff into the lungs once daily 30 Each 5 0 Active Active Problems Problem Noted Date Diagnosed Date Suspected COVID-19 virus infection 03/02/2020 Overview (03/02/2020): COVID-19 Tracking [reviewed or updated 03/02/2020] Exposure to confirmed case or travel risk - Yes, Date02/20 Date that symptoms began - January 17 Patient risk factors for severe COVID-19: None 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 - No Is patient ? No Anxiety and depression 04/06/2016 Mild intermittent asthma 04/06/2016 Obesity (BMI 30-39.9) 04/06/2016 Immunizations Immunization [...]
== END 2025-07-20 14:36 | disposition home or self-care (01) ==
LOC: HO.HMGCX 14:35
PROVIDERS: PCP Internal Medicine; Visit Provider Student in an Organized Health Care Education/Training Program
DX: E01.0 Iodine-deficiency related diffuse (endemic) goiter (principal)
CPT/HCPCS: 76536

== ENCOUNTER → 2025-07-20 14:37 | Outpatient (BNV) | payer OTHER, SELFPAY | PROVIDERS: PCP Internal Medicine; Visit Provider Radiology Diagnostic Radiology | DX: E04.1 Nontoxic single thyroid nodule (principal) | CPT/HCPCS: 76536 ==